=== PATIENT | male | born 1955 | race African-American/Black ===

== ENCOUNTER 2017-08-31 20:31 | Emergency (ER) | payer OTHER ==
[~2017-08-31] VITALS: Ht 177.8 cm; Wt 83.0 kg
[~2017-08-31 20:31] MED LIST: bp med
[2017-08-31 20:32] VITALS: BP 178/87; PULSE 80; RESP 16; TEMP 98; O2SAT 98
[2017-08-31] MEDS ORDERED: ASPI-516 CHEW (20:50)
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
== END 2017-08-31 22:49 | disposition home or self-care (01) ==
LOC: NEPD 20:31
DX: S16.1XXA Strain of muscle, fascia and tendon at neck level, initial encounter (principal); I10 Essential (primary) hypertension; V49.40XA Driver injured in collision with unspecified motor vehicles in traffic accident, initial encounter; Z79.82 Long term (current) use of aspirin
CPT/HCPCS: 70450; 71010; 72125; 73030; 99285